=== PATIENT | male | born 1980 | race Caucasian/White ===

== ENCOUNTER 2016-12-26 21:00 | Emergency (ER) | payer OTHER ==
--- NOTE | 2016-12-26 21:23 | ED Physician Documentation ---
Nausea/Vomiting/Diarrhea - HPI Chief Complaint: Nausea,Vomiting,Diarrhea Additional Information: 36 yo M who present with nausea and non blood emesis and diarrhea for the last 3 days. He also reports some body aches. No fever or chills reported. He has tried to hydrate himself with gatorade but has not been able to keep any meaningful food down. No dysuria or hematuria or urinary frequency reported. 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 Onset: days ago Duration: waxing, waning - Associated Symptoms Vomiting: frequent Diarrhea: watery Abdominal Pain: cramping, diffuse - ROS CONST: none - PAST HX Past History: none Allergies/Adverse Reactions: Allergies Allergy/AdvReac Type Severity Reaction Status Date / Time No Known Allergies Allergy Verified 12/26/16 21:48 Home Medications: Ambulatory Orders Medication Instructions Recorded Otc Antiacid 1 tab PO DAILY 12/26/16 - SOCIAL HX Smoking History: non-smoker Alcohol Use: none Drug Use: none - FAMILY HX Family History: none - VITAL SIGNS Vital Signs: Vital Signs Temp Pulse Resp BP Pulse Ox 98.1 F 78 18 126/86 98 12/26/16 23:00 12/26/16 23:00 12/26/16 23:00 12/26/16 23:00 12/26/16 23:00 - REVIEWED ASSESSMENTS Nursing Assessment Reviewed: Yes Vitals Reviewed: Yes Progress - Progress Progress: here with N/V/D and noted with dry mucosa so will go ahead and check for routine cbc and cmp and ivf ns bolus noted with elevated AST/ALT 89/46 but Lipase and Acute hepatitis panel ordered pending at that time of discharge 2240: pt reports improvement in symptoms after iv hydration-- symptoms is likely as result of gastroenteritis -- ED Results Lab/Radiology - Lab Results Lab Results: Lab Results 12/26/16 12/26/16 21:31 21:31 WBC 9.00 K/ul K/ul (4.00-12.00) RBC 4.90 M/ul M/ul (3.90-5.20) Hgb 14.8 g/dL g/dL (12.0-18.0) Hct 42.4 % % (37.0-53.0) MCV 86.6 fl fl (80.0-100.0) MCH 30.2 pg pg (28.0-34.0) MCHC 34.9 g/dL g/dL (30.0-36.0) RDW 13.8 % % (11.3-14.3) Plt Count 187 K/mm3 K/mm3 (130-400) Neut % (Auto) 80.5 % H % (39.0-79.0) Lymph % (Auto) 11.4 % L % (16.0-50.0) [place] % (Auto) 5.7 % % (0.0-11.0) Eos % (Auto) 0.5 % % (0.0-6.8) Baso % (Auto) 0.1 (0.0-1.5) Neut # 7.2 # k/uL # k/uL (1.4-7.7) Lymph # 1.0 # k/uL # k/uL (0.6-4.0) [place] # 0.5 # k/uL # k/uL (0.0-0.9) Eos # 0.0 # k/uL # k/uL (0.0-0.6) Baso # 0.0 # k/uL # k/uL (0.0-0.5) Reactive Lymphs % 1.8 % % (0.0-5.0) Reactive Lymphs # 0.2 # k/uL # k/uL (0.0-0.8) Sodium 137 mmol/L mmol/L (136-145) Potassium 3.8 mmol/L mmol/L (3.5-5.0) Chloride 103 mmol/L mmol/L (98-110) Carbon Dioxide 30 mmol/L mmol/L (20-32) BUN 13 mg/dL mg/dL (10-26) Creatinine 0.7 mg/dL mg/dL (0.4-1.5) Estimated Creat Clear 222 Est GFR ( Amer) > 60 (60 - ) Est GFR (Non-Af Amer) > 60 (60 - ) Glucose 132 mg/dL H mg/dL (70-99) Calcium 9.4 mg/dL mg/dL (8.5-10.5) Total Bilirubin 1.1 mg/dL mg/dL (0.2-1.2) AST 89 U/L H U/L (0-41) ALT 46 U/L H U/L (0-45) Alkaline Phosphatase 50 U/L U/L (46-116) Total Protein 7.7 g/dL g/dL (6.0-8.5) Albumin 4.6 g/dL g/dL (3.0-5.5) - Orders Orders: ED Orders Category Date Time Status CBC/PLATELET/DIFF Routine Lab 12/26/16 21:31 Completed CMP Routine Lab 12/26/16 21:31 Completed HEPATITIS PANEL-ACUTE Routine Lab 12/26/16 21:30 Received LIPASE Routine Lab 12/26/16 21:48 Received 0.9 % Sodium Chloride [Normal Saline] Med 12/26/16 21:27 Once 1,000 ml IV DIRECTED ONE 0.9 % Sodium Chloride [Normal Saline] 1,000 ml Med 12/26/16 21:29 Discontinued IV .STK-MED Lidocaine 2%Visc 15ml [Xylocaine] Med 12/26/16 21:33 Discontinued 300 mg .ROUTE .STK-MED ONE Mag Hydrox/Al Hydrox/Simeth [Mylanta] 30 ml Med 12/26/16 21:33 Discontinued Lidocaine 2%Visc 15ml [Xylocaine] 20 mg PHENobarb/HYOSCY/ATROPINE/SCOP [] 10 ml PO NOW Magnesium Hydroxide/Al Hydrox [Maalox] Med 12/26/16 21:33 Discontinued 30 ml PO .STK-MED ONE Nausea Physical Exam - EXAM General Appearance: no acute distress EENT: eye inspection normal, other (dry mucosa) Neck: normal inspection Respiratory: no resp distress CVS: reg rate & rhythm Abdomen: non-tender Neuro/Psych: oriented X3 Discharge Clincal Impression: Gastroenteritis Referrals: Ronald Morel MD [Primary Care Provider] - 2 Days Home Medications: Ambulatory Orders Otc Antiacid 1 tab PO DAILY 12/26/16 Condition: Good Disposition: 01 HOME, SELF-CARE Decision to Admit: NO Decision Time: 22:43
[2016-12-26] MEDS ORDERED: NORMAL SALINE 500 ML IV.SOLN IV ONE (21:27)
[2016-12-26] MEDS ORDERED: 0.9 % SODIUM CHLORIDE 1,000 ML IV ONE (21:29)
[2016-12-26] MEDS ORDERED: MAG HYDROX/AL HYDROX/SIMETH 30 ML, Lidocaine 2%Visc 15ml 20 MG, PHENobarb/HYOSCY/ATROPI... PO ONE ×3 (21:33)
[2016-12-26] MEDS ORDERED: MAGNESIUM HYDROXIDE/AL HYDROX 30 ML UDC PO ONE (21:33)
[2016-12-26] MEDS ORDERED: Lidocaine 2%Visc 15ml 20 MG/ML UDC ONE (21:33)
[2016-12-26 21:53] LABS: BASOPHILS % 0.1 (0.0-1.5); EOSINOPHILS % 0.5 % (0.0-6.8); MEAN CORPUSCULAR HEMOGLOBIN 30.2 pg (28.0-34.0); MEAN CORPUSCULAR VOLUME 86.6 fl (80.0-100.0); MONOCYTES % 5.7 % (0.0-11.0); NEUTROPHILS # 7.2 # k/uL (1.4-7.7)
[2016-12-26 22:08] LABS: eGFR (African) > 60; eGFR (Non-African) > 60
[2016-12-26 23:05] VITALS: BP 126/86
[2016-12-27 17:11] LABS: LIPASE 15 U/L (13-60)
== END 2016-12-26 22:55 | disposition home or self-care (01) ==
LOC: ED 21:00
DX: K52.9 Noninfective gastroenteritis and colitis, unspecified (principal)
CPT/HCPCS: 80053; 80074; 83690; 85025; A9270; J7030; 96360; 99283; S1016